=== PATIENT | female | born 2005 | race Two or more races ===

== ENCOUNTER 2025-05-19 21:35 | Emergency (ER) | payer BC, SELFPAY ==
[2025-05-19 21:37] VITALS: BP 122/84; PULSE 83; RESP 17; TEMP 36.7; O2SAT 97; BMI 50.3
--- NOTE | 2025-05-19 22:02 | PD.EDSUICD ---
ED Psych RME/HPI General Chief Complaint: Suicidal Stated Complaint: OD ON WELLBUTRIN Arrival date/time: 05/19/25 21:35 RME / HPI RME / HPI Narrative: See MDM for HPI documentation. Related Data Allergies Allergy/AdvReac Type Severity Reaction Status Date / Time No Known Allergies Allergy Verified 05/19/25 21:41 Review of Systems Review of Systems Systems Reviewed: All systems reviewed, normal except as documented Past Medical History Past Medical History CARDIAC: Negative Congestive Heart Failure RESPIRATORY: Negative Chronic Obstructive Pulmonary Disease (COPD) GENITOURINARY: Negative Renal Disease ENDOCRINE: Negative Diabetes Mellitus Type 1 or Diabetes Mellitus Type 2 PSYCHO/SOCIAL: Positive Depression and Attention Deficit Hyperactivity Disorder Social History SMOKING STATUS: Never smoker ED Exam Narrative Physical exam: See MDM for physical exam documentation. Course Quality Measures none Orders Category Date Time Status 179 Psychiatric Hold NOW Care 05/19/25 22:15 Ordered Referral Psych Eval Stat Cons 05/19/25 22:08 Active Acetaminophen Stat Lab 05/19/25 22:09 Completed Alcohol, Blood Medical Stat Lab 05/19/25 22:09 Completed Bilirubin,Direct Stat Lab 05/19/25 22:09 Completed CBC Stat Lab 05/19/25 22:10 Completed CMP [Comprehensive Metabolic Panel] Stat Lab 05/19/25 22:09 Completed Drug Screen,Urine Stat Lab 05/20/25 00:48 Completed HCG,Qualitative Serum Stat Lab 05/19/25 22:09 Completed Magnesium Stat Lab 05/19/25 22:09 Completed Salicylate Stat Lab 05/19/25 22:09 Completed TSH [Thyroid Stimulating Hormone] Stat Lab 05/19/25 22:09 Completed UA, C/S IF [Urinalysis, C/S if Indicated] Stat Lab 05/20/25 00:48 Completed Vital Signs Vital signs: Vital Signs Temperature 98.1 F 05/19/25 21:37 Pulse Rate 83 05/19/25 21:37 Respiratory Rate 17 05/19/25 21:37 Blood Pressure 122/84 05/19/25 21:37 Pulse Oximetry (%) 97 05/19/25 21:37 Oxygen Delivery Method Room Air 05/19/25 21:37 Psych MDM Narrative [facility] Narrative:: This section includes all my notes and documentations, including HPI, PE, and ED course. 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 Patient got into a verbal disagreement with her mom and took a handful of Wellbutrin 150mg pills. She has tried to overdose in the past. No thoughts of hurting other people or hallucinations. No other complaints reported. ROS: All negative except as documented in HPI. Physical Exam: General: Alert and oriented. No acute distress when remaining still. Eyes: Conjunctivae and lids clear. PERRL. EOMI. ENT: No nasal congestion. Neck: Supple. Heart: RRR. Lungs: No respiratory distress. Good air movement. No rhonchi, wheezing, rales. Abdomen: Soft and nontender. Skin: Warm and dry. Neuro: Alert and oriented X 3. Cranial nerves II to XII grossly normal. No peripheral motor deficits. I reviewed all diagnostic test results. Blood tests and urine tests are unremarkable. At this point, diagnoses include: Possible suicidal attempt by overdose Poison control recommended observation for 24 hours. Waiting for evaluation by our ED director of critical care. At 6 AM on 05/20/2025, care of the patient was transferred to Dr. Esteves. Antwan Rodriguez MD Patient data External records reviewed:: [facility] previous records (Per chart review, patient was seen here on 11/09/23 for depression.) Clinical information provided by:: patient Social determinants that could affect healthcare access:: mental health Patient has the following chronic illnesses:: ADHD, depression How is presenting disease/condition affected by chronic disease/condition?: caused by Evaluation data The following diagnostics were reviewed and interpreted by me:: lab results Lab and/or radiology exams considered but not ordered:: none Interpretation Summary: I reviewed all diagnostic test results. Blood tests and urine tests are unremarkable. Medications / Prescriptions Medications or Prescriptions considered but not ordered:: none Medication administrations:: none Consultations Consultation(s) initiated? (list below): No Diagnosis Psych Differential Diagnosis: acute psychosis, chronic schizophrenia, suicidal ideation, bipolar disorder, depression, drug-induced psychotic disorder and acute anxiety Most likely diagnosis given after review of the tests above:: Possible suicidal attempt by overdose Admission Indicated Admission indicated?: not indicated Explain why admission is indicated or not indicated:: No psychiatric service at this facility. Admission Request Was there a request for admission?: No Disposition Plan Disposition Plan: other (specify) (Signed out to Dr. Esteves at 6 AM.) Discharge Plan Prescriptions/Referrals Referrals: No Primary/Family,Physician [Primary Care Provider] - In 1 week Problem List Clinical Impression: Intentional overdose, Suicidal ideation Patient/Caregiver Discharge Instructions Print Language: [place]
--- NOTE | 2025-05-19 22:02 | PC.NURSE ---
POISON CONTROLE NOTIFIED. RECOMEND 24 HR OBSERVATION, SZ PERC. 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
[2025-05-19 23:41] VITALS: BP 136/78; PULSE 91; RESP 18; O2SAT 98
[2025-05-19 23:53] VITALS: PULSE 89
[2025-05-20] VITALS (7 sets, daily range): BP systolic 91–138; BP diastolic 61–75; PULSE 70–94; RESP 16–30; TEMP 36.7–36.9; O2SAT 95–99
[2025-05-20 00:31] LABS: Basophils # (Auto) 0.1 Thou/mm3 (0.0-0.2); Basophils % (Auto) 0 % (0-2.5); Eosinophils # (Auto) 0.1 Thou/mm3 (0.0-0.5); Eosinophils % (Auto) 1 % (0-10); Hematocrit 41.3 % (36.0-46.0); Hemoglobin 12.4 g/dL (12.0-16.0); Immature Granulocytes Auto 0.05 Thou/mm3 (0.00-0.00); Lymphocytes # (Auto) 3.7 Thou/mm3 (1.0-4.8); Lymphocytes % (Auto) 27 % (10-50); Mean Corpuscular HGB Conc 30.0 g/dl (31.0-37.0); Mean Corpuscular Hemoglobin 22.5 pg (25.0-35.0); Mean Corpuscular Volume 75 fL (80-100); Monocytes # (Auto) 0.7 Thou/mm3 (0.0-0.8); Monocytes % (Auto) 5 % (0-12); Neutrophils # (Auto) 9.0 Thou/mm3 (1.8-7.7); Neutrophils % (Auto) 66 % (37-80); Nucleated Red Blood Cell # 0.00 Thou/mm3 (0.00-0.00); Nucleated Red Blood Cell % 0 /100 WBC (0); Platelet Count 438 Thou/mm3 (140-440); RDW Standard Deviation 40.9 fL (36.4-46.3); Red Blood Count 5.52 Miln/mm3 (4.00-5.20); White Blood Count 13.7 Thou/mm3 (4.5-11.0)
[2025-05-20 01:04] LABS: Collection Type, Urine Clean Catch
[2025-05-20 01:07] LABS: Acetaminophen < 2.0 mcg/mL (10.0-20.0); Alanine Aminotransferase 32 U/L (10-49); Albumin, Serum 4.8 gm/dL (3.5-5.0); Albumin/Globulin Ratio 1.6 (1.2-2.2); Alcohol, Blood Medical < 3.0 mg/dL (0-10.0); Alkaline Phosphatase 99 U/L (46-116); Anion Gap 11 (7-16); Aspartate Amino Transferase 28 U/L (0-34); BUN/Creatinine Ratio 11 Ratio (12-20); Bilirubin,Direct 0.1 mg/dL (0.0-0.3); Bilirubin,Total 0.4 mg/dL (0.3-1.2); Blood Urea Nitrogen 8 mg/dL (9-23); Calcium 10.3 mg/dL (8.3-10.6); Calcium (Corrected) 10.3 mg/dL (8.5-10.1); Carbon Dioxide 26.1 mMol/L (20.0-31.0); Chloride 104 mMol/L (98-107); Creatinine (Component) 0.7 mg/dL (0.6-1.3); Estimated Creatinine Clearance 161.8 mL/min (>60); Globulin 3.0 gm/dL (2.3-3.5); Glucose 95 mg/dL (74-106); Magnesium 1.6 mg/dL (1.6-2.6); Osmolality,Calculated 279 (275-295); Potassium 3.9 mMol/L (3.4-5.1); Salicylate < 3.0 mg/dL; Sodium 141 mMol/L (136-145); Thyroid Stimulating Hormone 0.99 uIU/mL (0.55-4.78); Total Protein 7.8 gm/dL (5.7-8.2); eGFR > 60 See Note
[2025-05-20 01:15] LABS: Amorphous Crystals,Urine Present (Absent); Bilirubin,Urine Negative (Negative); Blood,Urine 1+ (Negative); Clarity,Urine Turbid (Clear/Hazy); Color,Urine Yellow (Lt Yel-Yel); Culture Indicated,Urine Not Indicated; Glucose, Urine Negative (Negative); Ketones,Urine Negative (Negative); Leukocyte Esterase,Urine Negative (Negative); Nitrite,Urine Negative (Negative); PH,Urine 6.0 (5.0-7.0); Protein,Urine Trace (Neg - Trace); RBC,Urine 5 /hpf (0-3); Specific Gravity,Urine 1.029 (1.001-1.035); Squamous Epithelial Cell,Urine 1 /hpf (0-5); Urobilinogen,Urine Negative mg/dL (0.0-1.0); WBC,Urine 1 /hpf (0-5)
[2025-05-20 01:20] LABS: Amphetamine/Methamp Scrn,U Negative (Negative); Barbiturate Screen,Urine Negative (Negative); Benzodiazepines Screen,Urine Negative (Negative); Benzoylecgonine Screen, Ur Negative (Negative); Fentanyl Screen,Urine Negative (Negative); Opiate Screen,Urine Negative (Negative); THC Screen,Urine Negative (Negative)
[2025-05-20 01:42] LABS: HCG,Qualitative Serum Negative
--- NOTE | 2025-05-20 08:09 | EKG_ITS ---
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
--- NOTE | 2025-05-20 08:11 | PD.EDADDENDU ---
Emergency Room Addendum Addendum Narrative: 0600: Care assumed from Dr. Rodriguez, the previous shift emergency physician. Past medical, surgical, social and family history reviewed. Vitals and home medications reviewed. I will assume the care of the patient at this time, pending medical clearance for mental health evaluation. Please refer to the emergency department record for history and examination from initial visit.?The following addendum documentation note is intended to reflect any pending information, findings, or radiology results not included in the patient?s initial chart. EK05/20/2025 @ 08:18 AM. Sinus rhythm, rate 72, no STEMI. 0820: Patient reports feeling at her usual state of health without any complaints. I reviewed labs. Patient is medically cleared for mental health evaluation. 1028: [facility] has evaluated the patient. States patient is safe to go home and there is a safety plan with patient and mother. [facility] reports the patient is connected with [facility]. Mother states patient has an appointment scheduled this upcoming Monday05/24/2025 at 2PM and is working on getting an appt today. Patient has remained stable through ED course and will be discharged home.
--- NOTE | 2025-05-20 11:13 | PC.NURSE ---
Received call from posion control. Agent asked for QRSd (84) and OTc (447) from EKG and also for levels for salicylates (<3.0) and acetaminophen (<2.0). Agent stated they recommend keeping pt for observation for 24hrs after ingestion which, according to him would be about 1830 this evening. notified of call and recommendation.
== END 2025-05-20 13:15 | disposition home or self-care (01) ==
PROVIDERS: Emergency Medicine; Emergency Provider Family Medicine
DX: T43.292A Poisoning by other antidepressants, intentional self-harm, initial encounter (principal); R45.851 Suicidal ideations
CPT/HCPCS: 36415; 80053; 80307; 80320; 80329; 81001; 82248; 83735; 84443; 84703; 85025; 93005; 96127; 99284; G0480